=== PATIENT | female | born 1950 | race Caucasian/White ===

== ENCOUNTER 2017-10-02 08:02 | Outpatient (CLI) | payer OTHER, MEDICARE | END 2017-10-02 21:21 | disposition home or self-care (01) | LOC: SMA 08:02 | PROVIDERS: ATTEND Internal Medicine | DX: Z12.31 Encounter for screening mammogram for malignant neoplasm of breast (principal) | CPT/HCPCS: G0202 ==

== ENCOUNTER 2018-10-07 08:02 | Outpatient (CLI) | payer OTHER, MEDICARE | END 2018-10-07 19:15 | disposition home or self-care (01) | LOC: SMA 08:02 | PROVIDERS: ATTEND Internal Medicine | DX: Z12.31 Encounter for screening mammogram for malignant neoplasm of breast (principal) | CPT/HCPCS: 77067 ==

== ENCOUNTER 2019-10-08 08:00 | Outpatient (CLI) | payer OTHER, MEDICARE | END 2019-10-08 21:08 | disposition home or self-care (01) | LOC: SMA 08:00 | PROVIDERS: ATTEND Internal Medicine | DX: Z12.31 Encounter for screening mammogram for malignant neoplasm of breast (principal); N64.89 Other specified disorders of breast | CPT/HCPCS: 77067 ==

== ENCOUNTER 2020-10-10 07:53 | Outpatient (CLI) | payer OTHER, MEDICARE | END 2020-10-10 21:03 | disposition home or self-care (01) | LOC: SMA 07:53 | DX: Z12.31 Encounter for screening mammogram for malignant neoplasm of breast (principal); N64.89 Other specified disorders of breast; N63.32 Unspecified lump in axillary tail of the left breast; N63.31 Unspecified lump in axillary tail of the right breast | CPT/HCPCS: 77067 ==

== ENCOUNTER 2021-10-15 08:27 | Outpatient (CLI) | payer OTHER, MEDICARE | END 2021-10-15 20:15 | disposition home or self-care (01) | LOC: SMA 08:27 | DX: Z12.31 Encounter for screening mammogram for malignant neoplasm of breast (principal); N64.89 Other specified disorders of breast; R59.0 Localized enlarged lymph nodes | CPT/HCPCS: 77067 ==

== ENCOUNTER 2022-10-24 09:25 | Outpatient (CLI) | payer OTHER, MEDICARE | END 2022-10-24 20:28 | disposition home or self-care (01) | LOC: SMA 09:25 | PROVIDERS: ATTEND Internal Medicine | DX: Z12.31 Encounter for screening mammogram for malignant neoplasm of breast (principal) | CPT/HCPCS: 77067 ==

== ENCOUNTER 2023-10-31 08:35 | Outpatient (CLI) | payer OTHER, MEDICARE | END 2023-10-31 18:17 | disposition home or self-care (01) | LOC: SMA 08:35 | PROVIDERS: ATTEND Internal Medicine | DX: Z12.31 Encounter for screening mammogram for malignant neoplasm of breast (principal) | CPT/HCPCS: 77067 ==